=== PATIENT | female | born 1995 | race African-American/Black ===

== ENCOUNTER 2016-06-15 19:57 | Emergency (ER) | payer BC, OTHER ==
[~2016-06-15] VITALS: Ht 175.3 cm; Wt 58.0 kg
[~2016-06-15 19:57] MED LIST: FERR140T PO; L-NO1TBD7 PO
[2016-06-15 19:59] VITALS: BP 131/66; PULSE 102; RESP 16; TEMP 98.6; O2SAT 98
[2016-06-16] MEDS ORDERED: DOCO200C PO (00:19)
[2016-06-16] MEDS ORDERED: PRENTAB16 PO (00:20)
[2016-06-16 01:08] LABS: BETA HCG QUANT 156305 MIU/ML (0-5)
--- NOTE | 2016-06-16 01:37 | PD ---
HPI Chief Complaint: Communications Instructor Problem/Complaint Time Seen by Provider: 00:10 Travel History International Travel<30 days: No Contact w/Intl Traveler<30days: No Traveled to known affect area: No History of Present Illness HPI 20-year-old female 1 para 0 last menstruation about 8 weeks ago arrives complaining of vaginal bleeding for 2 weeks. There is a brownish discharge. She reports changing her pad every few hours. She's had no fever vomiting diarrhea dysuria. She reports positive test. She is yet to initiate obstetrics follow-up. She did start taking vitamins a few days ago. She denies a history of STD. She has no dysuria or urinary frequency. FOR[facility]LY [facility] Past Medical History Anemia: Yes (IRON DEFICIENT-DIET RELATED) Diminished Hearing: No Headaches: Yes Immunizations Current: Yes ?: LMP: 04/19/16 : 0 Para: 1 Past Surgical History Surgical History: No Previous Surgery Social History Alcohol Use: Yes (RARE) Tobacco Use: No Substance Use: No Allergies-Medications (Allergen,Severity, Reaction): Coded Allergies: No Known Allergies (Unverified , 06/16/16) Reported Meds & Prescriptions Reported Meds & Active Scripts Active Reported Complete 14-0.4 mg ( Vit W/ Ferrous Fumara) 1 Tab Tab 1 Tab PO DAILY Dha (Docosahexaenoic Acid) 200 Mg Cap 1 Tab PO DAILY Review of Systems Except as stated in HPI: all other systems reviewed are Neg Physical Exam Narrative GENERAL: 20-year-old female pleasant well-nourished well-developed SKIN: Warm and dry. HEAD: Atraumatic. Normocephalic. EYES: Pupils equal and round. No scleral icterus. No injection or drainage. ENT: No nasal bleeding or discharge. Mucous membranes pink and moist. NECK: Trachea midline. No JVD. CARDIOVASCULAR: Regular rate and rhythm. No murmur appreciated. RESPIRATORY: No accessory muscle use. Clear to auscultation. Breath sounds equal bilaterally. GASTROINTESTINAL: Abdomen soft, non-tender, nondistended. Hepatic and splenic margins not palpable. MUSCULOSKELETAL: No obvious deformities. No clubbing. No cyanosis. No edema. NEUROLOGICAL: Awake and alert. No obvious cranial nerve deficits. Motor grossly within normal limits. Normal speech. PSYCHIATRIC: Appropriate mood and affect; insight and judgment normal. Data Data Last Documented VS Vital Signs Date Time Temp Pulse Resp B/P Pulse Ox O2 Delivery O2 Flow Rate FiO2 06/16/16 00:13 18 06/15/16 19:59 98.6 102 131/66 98 Room Air Orders Beta Hcg (Quant/Titer) (06/16/16 00:10) Complete Rh (06/16/16 00:10) Us Pelvis (Ques Preg/Ectopic) (06/16/16 ) Urinalysis - C+S If Indicated (06/16/16 00:10) Ed Urine Pregnancytest Poc (06/16/16 00:10) Gc And Chlamydia Pcr (06/16/16 01:37) Wet Prep Profile (06/16/16 01:37) Labs Laboratory Tests Test 06/16/16 06/16/16 00:25 02:35 Human Chorionic Gonadotropin, 132368 MIU/ML Quant Blood Type B POSITIVE Rho(D) Type POSITIVE Clue Cells (Wet Prep) NONE SEEN Vaginal Trichomonas (Wet Prep) NONE SEEN Vaginal Yeast (Wet Prep) NONE SEEN MDM Medical Decision Making Medical Screen Exam Complete: Yes Emergency Medical Condition: Yes Medical Record Reviewed: Yes Differential Diagnosis IUP, UTI, ectopic , ov torsion, appendicitis, TOA, cervicitis, BV, Trichomoniasis, ov cyst, hernia, mittelschmerz, pain from menstruation Narrative Course Wet prep is negative Beta hCG 156,305 Ultrasound revealed a 7 week 6 day gestation with heart rate 57 bpm with a small subchorionic hemorrhage and complex left ovary cyst consistent with corpus luteal cyst Blood type B+ F/U with obstetrics, Dr Urias, as discussed. Repeat beat in 48 hours. Pt ready for discharge. Return precautions discussed. Diagnosis Primary Impression: Threatened Additional Impression: Subchorionic hematoma in first trimester Referrals: Jia Urias MD 2 days Additional Instructions: You have a choice when it comes to health care, and we are glad that you chose [facility]. Hopefully, we have met your expectations on today's visit. You are welcome to return to [facility] at any time, as we are committed to meeting the health care needs of our community. Med/Other Pt SpecificInfo: Prescription(s) given Disposition: DISCHARGE HOME Condition: Dagoberto Valle MD Jun 16, 2016 01:37
--- NOTE | 2016-06-16 02:17 | RADRPT ---
EXAM DATE/TIME: 06/16/2016 01:31 [place] COMPARISON: No previous studies available for comparison. INDICATIONS : Pelvic pain and bleeding. LAB(S): Beta-hC,305 MEDICAL HISTORY : . Anemia. SURGICAL HISTORY : None. ENCOUNTER: Initial ACUITY: 2 weeks PAIN SCORE: 5/10 LOCATION: Bilateral pelvis MEASUREMENTS: UTERUS: 9.8 x 7.1 x 6.0 cm ENDOMETRIAL STRIPE: >20 mm RIGHT OVARY: 3.7 x 2.1 x 1.1 cm LEFT OVARY: 4.0 x 3.1 x 3.4 cm FINDINGS: UTERUS: A solitary intrauterine gestation is seen. A well-formed gestational sac, yolk sac, and a pole are noted. Walnut-rump length measures 1.47 cm which equals 7 weeks 6 days gestational age. hear t rate is 157 beats per minute. A focal area of decreased echogenicity consistent with small subchori onic hemorrhage noted. A small fibroid is seen involving the fundus. RIGHT OVARY: Ovary contains no mass or significant cystic lesion. LEFT OVARY: A hypoechoic structure with posterior acoustical enhancement is seen involving the left ovary. This m easures 2.0 x 2.0 x 1.9 cm. No hyperemia. MISCELLANEOUS: No free fluid. CONCLUSION: 1. 7 weeks 6 day intrauterine gestation with heart rate of 157 beats per minute. 2. Small subchorionic hemorrhage. 3. Complex cyst left ovary consistent with a corpus luteal cyst. Ricardo Mills Jr., MD on June 16, 2016 at 2:12 Board Certified Radiologist. This report was verified electronically.
[2016-06-16 04:40] LABS: CHLAMYDIA PCR NOT DETECTED (NOT DETECT); NEISSERIA PCR NOT DETECTED (NOT DETECT)
== END 2016-06-16 04:05 | disposition home or self-care (01) ==
LOC: NEPC 19:57
DX: O20.0 Threatened abortion (principal); O71.7 Obstetric hematoma of pelvis; D64.9 Anemia, unspecified
CPT/HCPCS: 76700; 84702; 84703; 86901; 87210; 87491; 87591

== ENCOUNTER 2017-11-30 21:42 | Emergency (ER) | payer MEDICAID, OTHER ==
[~2017-11-30 21:42] MED LIST changes: +DOCO200C PO; -FERR140T PO; -L-NO1TBD7 PO; +PRENTAB16 PO
[2017-11-30] MEDS ORDERED: IOHEXOL 350 MG/ML 10 ML VIAL (for RAD DIAG) IVCONTRAST ONE (21:43)
[2017-11-30 21:47] VITALS: BP 109/60; PULSE 125; RESP 16; TEMP 100.2; O2SAT 96
[2017-11-30] MEDS ORDERED: SODIUM CHLOR 0.9% 1000 ML INJ 1,000 ML IV ONE (22:15)
[2017-11-30] MEDS ORDERED: SODIUM CHLORIDE 0.9% FLUSH 10 ML FLUSH IV FLUSH PRN (22:15)
[2017-11-30] MEDS ORDERED: ONDANSETRON ODT 4 MG TAB PO ONE (22:15)
[2017-11-30] MEDS ORDERED: KETOROLAC TROMETHAMINE 30 MG/ML (IVP) VIAL IVP ONE (22:15)
[2017-11-30 22:30] VITALS: PULSE 102; RESP 18; TEMP 99.3; O2SAT 100
--- NOTE | 2017-11-30 22:40 | PD ---
HPI Chief Complaint: Abdominal Pain Time Seen by Provider: 21:59 Travel History International Travel<30 days: No Contact w/Intl Traveler<30days: No Traveled to known affect area: No History of Present Illness HPI 22yo F here with multiple complaints. Pt said for the last 2 weeks, she has been having bitemporal headache, nausea, bodyaches, intermittent abdominal pain. Pt said she felt warm today, has generalized weakness, sob and throat pain today. Said she has history of migraine headache and she does have photophobia. Denies any chest pain, dysuria, hematuria, vaginal discharge, focal weakness or numbness. Just finished her menstrual period. PFSH Past Medical History Anemia: Yes (IRON DEFICIENT-DIET RELATED) Diminished Hearing: No Headaches: Yes Immunizations Current: Yes ?: Not LMP: 2 DAYS AGO : 0 Para: 1 Social History Alcohol Use: Yes (RARE) Tobacco Use: No Substance Use: No Allergies-Medications (Allergen,Severity, Reaction): Coded Allergies: No Known Allergies (Verified Adverse Reaction, Unknown, 11/30/17) Reported Meds & Prescriptions Reported Meds & Active Scripts Active Tylenol (Acetaminophen) 325 Mg Tab 650 Mg PO Q6H PRN Zofran Odt (Ondansetron Odt) 4 Mg Tab 4 Mg SL Q12HR PRN Review of Systems Except as stated in HPI: all other systems reviewed are Neg Physical Exam Narrative GENERAL: 22yo F in mild distress. SKIN: Focused skin assessment warm/dry. HEAD: Atraumatic. Normocephalic. EYES: Pupils equal and round at 3mm bilaterally. EOMI. ENT: Throat: Uvula midline. No erythema. No tonsillar exudate. NECK: No nuchal rigidity. CARDIOVASCULAR: Regular rate and rhythm. No murmur appreciated. RESPIRATORY: No accessory muscle use. Clear to auscultation. Breath sounds equal bilaterally. GASTROINTESTINAL: Abdomen soft, mild suprapubic ttp. No rebound tenderness or guarding. MUSCULOSKELETAL: No obvious deformities. No clubbing. No cyanosis. No edema. NEUROLOGICAL: Awake and alert. No obvious cranial nerve deficits. Motor grossly within normal limits in all extremities. Sensation intact. Normal speech. PSYCHIATRIC: Appropriate mood and affect; insight and judgment normal. Data Data Last Documented VS Vital Signs Date Time Temp Pulse Resp B/P (MAP) Pulse Ox O2 Delivery O2 Flow Rate FiO2 12/01/17 01:35 98.9 77 16 127/74 (91) 100 11/30/17 22:30 Room Air Orders Orders Complete Blood Count With Diff (11/30/17 22:10) Comprehensive Metabolic Panel (11/30/17 22:10) Lipase (11/30/17 22:10) Urinalysis - C+S If Indicated (11/30/17 22:10) Iv Access Insert/Monitor (11/30/17 22:10) Ecg Monitoring (11/30/17 22:10) Oximetry (11/30/17 22:10) Sodium Chloride 0.9% Flush (Ns Flush) (11/30/17 22:15) Ketorolac Inj (Toradol Inj) (11/30/17 22:15) Ed Urine Pregnancytest Poc (11/30/17 22:10) Sodium Chlor 0.9% 1000 Ml Inj (Ns 1000 M (11/30/17 22:15) Ondansetron Odt (Zofran Odt) (11/30/17 22:15) Chest, Single Ap (11/30/17 ) Electrocardiogram (11/30/17 ) Influenzae A/B Antigen (11/30/17 22:10) Ct Abd/Pel W Iv Contrast(Rout) (11/30/17 ) Morphine Inj (Morphine Inj) (11/30/17 23:30) Ed Discharge Order (12/01/17 00:23) Metoclopramide Inj (Reglan Inj) (12/01/17 00:30) Al-Mag Hy-Si 40-40-4 Mg/Ml Liq (Mag-Al P (12/01/17 00:30) Lidocaine 2% Viscous (Xylocaine 2% Visco (12/01/17 00:30) Iohexol 350 Inj (Omnipaque 350 Inj) (11/30/17 21:43) Labs Laboratory Tests Test 11/30/17 22:40 White Blood Count 9.6 TH/MM3 Red Blood Count 4.06 MIL/MM3 Hemoglobin 12.4 GM/DL Hematocrit 37.2 % Mean Corpuscular Volume 91.5 FL Mean Corpuscular Hemoglobin 30.6 PG Mean Corpuscular Hemoglobin Concent 33.5 % Red Cell Distribution Width 12.5 % Platelet Count 191 TH/MM3 Mean Platelet Volume 9.2 FL Neutrophils (%) (Auto) 91.6 % Lymphocytes (%) (Auto) 5.6 % Monocytes (%) (Auto) 2.2 % Eosinophils (%) (Auto) 0.3 % Basophils (%) (Auto) 0.3 % Neutrophils # (Auto) 8.9 TH/MM3 Lymphocytes # (Auto) 0.5 TH/MM3 Monocytes # (Auto) 0.2 TH/MM3 Eosinophils # (Auto) 0.0 TH/MM3 Basophils # (Auto) 0.0 TH/MM3 CBC Comment DIFF FINAL Differential Comment Urine Color YELLOW Urine Turbidity CLEAR Urine pH 5.5 Urine Specific [place] GREATER/EQUAL 1.030 Urine Protein NEG mg/dL Urine Glucose (UA) NEG mg/dL Urine Ketones NEG mg/dL Urine Occult Blood TRACE Urine Nitrite NEG Urine Bilirubin NEG Urine Urobilinogen 0.2 MG/DL Urine Leukocyte Esterase NEG Urine RBC 0-3 /hpf Urine WBC 3-5 /hpf Urine Squamous Epithelial Cells > 8 /hpf Urine Bacteria OCC /hpf Microscopic Urinalysis Comment CULT NOT INDICATED Blood Urea Nitrogen 20 MG/DL Creatinine 0.89 MG/DL Random Glucose 104 MG/DL Total Protein 7.6 GM/DL Albumin 3.6 GM/DL Calcium Level 8.7 MG/DL Alkaline Phosphatase 81 U/L Aspartate Amino Transf (AST/SGOT) 25 U/L Alanine Aminotransferase (ALT/SGPT) 28 U/L Total Bilirubin 0.4 MG/DL Sodium Level 139 MEQ/L Potassium Level 3.8 MEQ/L Chloride Level 107 MEQ/L Carbon Dioxide Level 23.2 MEQ/L Anion Gap 9 MEQ/L Estimat Glomerular Filtration Rate 95 ML/MIN Lipase 264 U/L [facility] Medical Decision Making Medical Screen Exam Complete: Yes Emergency Medical Condition: Yes Interpretation(s) EKG: Sinus tachycardia at 109bpm. Normal axis. No St segment elevation or depression. Differential Diagnosis Influenza vs. migraine headache vs. cystitis vs. dehydration vs. electrolyte abnormality Narrative Course 22yo F here with multiple complaints. Pt is nontoxic appearing. Initially at triage, pt was tachycardic at 125bpm and temp is 100.2F. However, repeat HR is 102bpm and temp is 99.3F. Influenza negative. CXR negative. Pt is saturating at 100% on RA. Urine negative. Pt given zofran and toradol and reevaluated at bedside. Said her headache has resolved. However, still with abdominal pain. Pt had recent . No other abdominal surgeries. Pt given morphine and CT a/p ordered. Labs reviewed, no leukocytosis. H/H normal. BUN mildly elevated at 20. LFTs normal. Lipase normal. UA showed occasional bacteria but squamous is >8 and culture is not indicated. CT a/p showed nonspecific bowel gas pattern which may represent mild ileus and/or gastroenteritis. Normal appendix. Nonobstructing small left renal calculus. Pt still a little nauseous with some abdominal discomfort so given reglan and GI cocktail. Pt tolerating PO. Return precautions given. Diagnosis Primary Impression: Dehydration Additional Impression: Viral syndrome Patient Instructions: General Instructions Departure Forms: Tests/Procedures Additional Instructions: Please follow up with your primary care physician in 2-3 days. Return to the ED if symptoms worsen. Med/Other Pt SpecificInfo: Prescription(s) given Scripts Acetaminophen (Tylenol) 325 Mg Tab 650 MG PO Q6H Y for PAIN SCALE 1 TO 4, #20 TAB 0 Refills Prov: Rhiannon Garzon DO 12/01/17 Ondansetron Odt (Zofran Odt) 4 Mg Tab 4 MG SL Q12HR Y for Nausea/Vomiting, #6 TAB 0 Refills Prov: Rhiannon Garzon DO 12/01/17 Disposition: 01 DISCHARGE HOME Condition: Stable Rhiannon Garzon DO Nov 30, 2017 22:40
--- NOTE | 2017-11-30 22:58 | RADRPT ---
EXAM DATE: 11/30/2017 10:54 PM EDT AGE/SEX: 22 years / Female INDICATIONS: Vomiting, short of breath, and fever for two weeks. CLINICAL DATA: This is the patient's initial encounter. Patient reports that signs and symptoms have been present for 2 weeks and indicates a pain score of 0/10. MEDICAL/SURGICAL HISTORY: None. None. COMPARISON: None. FINDINGS: A single AP view of the chest demonstrates the lungs to be symmetrically aerated without evidence of mass, infiltrate or effusion. The cardiomediastinal contours are unremarkable. Osseous structures a re intact. CONCLUSION: Negative examination. Electronically signed by: Ricardo Mills MD 11/30/2017 10:57 PM EDT
[2017-11-30 23:12] LABS: BILIRUBIN, URINE NEG (NEG); BLOOD, URINE TRACE (NEG); GLUCOSE,URINE NEG (NEG); KETONE, URINE NEG (NEG); NITRITE,URINE NEG (NEG); PH, URINE 5.5 (5.0-8.5); URINE COLOR YELLOW (YELLW/STRAW); URINE LEUKOCYTE ESTERASE NEG (NEG)
[2017-11-30 23:13] LABS: AUTOMATED NEUTROPHIL # 8.9 TH/MM3 (1.8-7.7); BASOPHIL % 0.3 % (0.0-2.0); EOSINOPHIL % 0.3 % (0.0-4.0); HEMATOCRIT 37.2 % (35.0-46.0); HEMOGLOBIN 12.4 GM/DL (11.6-15.3); LYMPH % 5.6 % (9.0-44.0); LYMPHOCYTE # 0.5 TH/MM3 (1.0-4.8); MEAN CELL VOLUME 91.5 FL (80.0-100.0); MEAN CORPUSCULAR HEMOGLOBIN 30.6 PG (27.0-34.0); MEAN CORPUSCULAR HGB CONC 33.5 % (32.0-36.0); MEAN PLATELET VOLUME 9.2 FL (7.0-11.0); MONO % 2.2 % (0.0-8.0); MONOCYTE # 0.2 TH/MM3 (0-0.9); NEUT % 91.6 % (16.0-70.0); PLATELET COUNT 191 TH/MM3 (150-450); RED BLOOD COUNT 4.06 MIL/MM3 (4.00-5.30); RED CELL DISTRIBUTION WIDTH 12.5 % (11.6-17.2); WHITE BLOOD COUNT 9.6 TH/MM3 (4.0-11.0)
[2017-11-30 23:19] LABS: BACTERIA, URINE OCC /hpf; RBC, URINE 0-3 /hpf (0-3); SQUAMOUS EPITHELIAL CELL URINE > 8 /hpf (0-5)
[2017-11-30 23:24] LABS: CHLORIDE 107 MEQ/L (98-107); SODIUM (NA) 139 MEQ/L (136-145)
[2017-11-30 23:27] LABS: CALCIUM 8.7 MG/DL (8.5-10.1)
[2017-11-30 23:28] LABS: ALBUMIN 3.6 GM/DL (3.4-5.0); BICARBONATE 23.2 MEQ/L (21.0-32.0); BLOOD UREA NITROGEN 20 MG/DL (7-18); GLUCOSE,RANDOM 104 MG/DL (74-106)
[2017-11-30] MEDS ORDERED: MORPHINE SULFATE 4 MG/ML INJ IV PUSH ONE (23:30)
[2017-11-30 23:31] LABS: ALT (GPT) 28 U/L (10-53); AST (GOT) 25 U/L (15-37); CREATININE 0.89 MG/DL (0.50-1.00); GLOMERULAR FILTRATION RATE 95 ML/MIN (>89)
[2017-11-30 23:32] LABS: TOTAL BILIRUBIN ADULT 0.4 MG/DL (0.2-1.0); TOTAL PROTEIN 7.6 GM/DL (6.4-8.2)
[2017-11-30 23:34] LABS: ALKALINE PHOSPHATASE 81 U/L (45-117)
--- NOTE | 2017-12-01 00:01 | RADRPT ---
EXAM DATE: 11/30/2017 11:52 PM EDT AGE/SEX: 22 years / Female INDICATIONS: Lower abdominal pain. CLINICAL DATA: This is the patient's initial encounter. Patient reports that signs and symptoms have been present for 2 weeks and indicates a pain score of 5/10. MEDICAL/SURGICAL HISTORY: None. None. ORAL CONTRAST: No oral contrast ingested. RADIATION DOSE: 5.30 CTDI (mGy) COMPARISON: [facility] [place] ABDOMEN & PELVIS W CONTRAST, 11/14/2014. . TECHNIQUE: Multiple contiguous axial images were obtained through the abdomen and pelvis following b olus infusion of 90 ml Omnipaque 350 (iohexol) nonionic water-soluble contrast as a single exam dos e. No oral contrast ingested. Using automated exposure control and adjustment of the mA and/or kV ac cording to patient size, radiation dose was kept as low as reasonably achievable to obtain optimal di agnostic quality images. DICOM format image data is available electronically for review and comparis on. FINDINGS: Lower Lungs: The visualized lower lungs are clear. Liver: The liver has a homogeneous density without space-occupying lesion. There is no dilation of th e biliary tree. Spleen: Homogeneous density without enlargement. Pancreas: Unremarkable without mass or calcification. Kidneys: Normal in size and shape. No evidence of mass or hydronephrosis. There is a small 1 to 2 mm nonobstructing left renal calculus. Adrenal Glands: Unremarkable. Aorta: The aorta and proximal iliac vessels are grossly unremarkable without aneurysmal dilation. Bowel/Mesentery: No oral contrast was given limiting the sensitivity of the exam. There is A normal appendix. There are multiple loops of nondilated air-containing small bowel.. The cecum and sigmoid colon have a normal configuration. Abdominal Wall: Intact. Retroperitoneum: No evidence of adenopathy in the retrocrural, para-aortic, or deep pelvic regions. Bladder: Contours are smooth. Reproductive Organs: No abnormal masses or calcifications seen. Inguinal: The inguinal region is unremarkable without evidence of adenopathy. Bony Structures: Unremarkable. CONCLUSION: 1. Mildly nonspecific bowel gas pattern which may represent a mild ileus and/or gastroenteritis. 2. Normal appendix. 3. Nonobstructing small left renal calculus. Electronically signed by: Farhad Adan MD 12/01/2017 12:00 AM EDT
[2017-12-01] MEDS ORDERED: TYLE325T PO (00:16)
[2017-12-01] MEDS ORDERED: ZOFR4TAB3 SL (00:16)
[2017-12-01] MEDS ORDERED: METOCLOPRAMIDE INJ 10 MG in SODIUM CHLORIDE 0.9% INJ 50 ML IV ONE (00:30)
[2017-12-01] MEDS ORDERED: LIDOCAINE VISCOUS 2% SOLN 15 ML UDC PO ONE (00:30)
[2017-12-01] MEDS ORDERED: ALUMINUM/MAGNESIUM/SIMETH 30 ML CUP PO ONE (00:30)
[2017-12-01 01:35] VITALS: BP 127/74; TEMP 98.9
--- NOTE | 2017-12-01 09:15 | EKG ---
Date Performed: 11/30/2017 Time Performed: 22:18:31 PTAGE: 22 years EKG: SINUS TACHYCARDIA ABNORMAL RHYTHM ECG NO PREVIOUS TRACING DOCTOR: Hugh Croft Interpretating Date/Time 12/01/2017 09:13:27
== END 2017-12-01 01:38 | disposition home or self-care (01) ==
LOC: PHED 21:42
DX: E86.0 Dehydration (principal); B34.9 Viral infection, unspecified; R00.0 Tachycardia, unspecified; R50.9 Fever, unspecified; R94.31 Abnormal electrocardiogram [ECG] [EKG]; R51 Headache; R11.0 Nausea; M79.1 Myalgia; R10.9 Unspecified abdominal pain; R07.0 Pain in throat
CPT/HCPCS: 71045; 74177; 80053; 81001; 83690; 84703; 85025; 87804; 93005; 96361; 96365; 96375; 99285; J1885; J2270; J2765; J7030; Q9967